=== PATIENT | male | born 1965 | race Hispanic/Latino ===

== ENCOUNTER 2023-01-17 13:50 | Outpatient (CLI) | payer BC | END 2023-01-17 13:51 | disposition home or self-care (01) | LOC: RAD 13:50 | PROVIDERS: ATTEND Internal Medicine Advanced Heart Failure and Transplant Cardiology | DX: R06.00 Dyspnea, unspecified (principal) | CPT/HCPCS: 71046 ==

== ENCOUNTER 2023-02-07 17:30 | Outpatient (CLI) | payer BC | END 2023-02-07 17:31 | disposition home or self-care (01) | LOC: SLEEPLAB 17:30 | PROVIDERS: ATTEND Internal Medicine | DX: G47.30 Sleep apnea, unspecified (principal) | CPT/HCPCS: 95800 ==

== ENCOUNTER 2023-04-05 17:00 | Outpatient (CLI) | payer BC | END 2023-04-05 17:01 | disposition home or self-care (01) | LOC: SLEEPLAB 17:00 | PROVIDERS: ATTEND Internal Medicine | DX: G47.33 Obstructive sleep apnea (adult) (pediatric) (principal); F41.9 Anxiety disorder, unspecified; J45.909 Unspecified asthma, uncomplicated; I10 Essential (primary) hypertension; G89.29 Other chronic pain | CPT/HCPCS: 95811 ==